=== PATIENT | male | born 1960 | race Caucasian/White ===

== ENCOUNTER 2018-07-04 03:35 | Inpatient (IN) | payer SELFPAY ==
[~2018-07-04] VITALS: Ht 162.6 cm; Wt 79.0 kg
[2018-07-04] MEDS ORDERED: SODIUM CHLORIDE 0.9% 1,000 ML IV ONE (04:15)
[2018-07-04] MEDS ORDERED: LORAZEPAM 2MG/ML CPJ IV STA (04:15)
[2018-07-04 05:03] LABS: CLARITY URINE CLOUDY (CLEAR); COLOR URINE DARK YELLOW (YELLOW); KETONES URINE TRACE (NEGATIVE); LEUKOCYTE ESTERASE URINE 2+ (NEGATIVE); NITRITE URINE NEGATIVE (NEGATIVE); OCCULT BLOOD URINE 2+ (NEGATIVE); PROTEIN URINE TRACE (NEGATIVE); SPECIFIC GRAVITY URINE 1.025 (1.005-1.030)
[2018-07-04 05:15] LABS: *AMPHETAMINES SCREEN URINE PRESUMTIVE POSITIVE (NEGATIVE); *BARBITURATES SCREEN URINE NEGATIVE (NEGATIVE); *BENZODIAZEPINES SCREEN URINE NEGATIVE (NEGATIVE); *COCAINE SCREEN URINE NEGATIVE (NEGATIVE)
[2018-07-04 05:16] LABS: CANNABINOID URINE SCREEN NEGATIVE (NEGATIVE); METHADONE URINE SCREEN NEGATIVE (NEGATIVE); OPIATES URINE SCREEN NEGATIVE (NEGATIVE); PHENCYCLIDINE URINE SCREEN NEGATIVE (NEGATIVE)
[2018-07-04 05:26] LABS: CHLORIDE 103 mEq/L (98-107); INR 1.4; PROTHROMBIN TIME 14.2 sec (9.1-11.1)
[2018-07-04 05:27] LABS: BASOPHILS % 0.2 % (0.0-2.0); EOSINOPHILS % 0.3 % (0.0-5.0); HEMATOCRIT. 21.8 % (42.0-52.0); LYMPHOCYTES % 10.4 % (20.0-50.0); MEAN CORPUSCULAR HEMOGLOBIN 24.6 pg (28.0-32.0); MEAN CORPUSCULAR VOLUME 76.9 fL (80.0-94.0); MEAN PLATELET VOLUME 7.6 fl (7.4-10.4); MONOCYTES % 8.8 % (2.0-8.0); NEUTROPHILS % 80.3 % (40.0-76.0); PLATELET 71 x1000/uL (130-400); RED BLOOD CELL COUNT 2.84 mill/uL (4.7-6.1); RED CELL DISTRIBUTION WIDTH 18.4 % (11.6-14.6)
[2018-07-04] MEDS ORDERED: LEVOFLOXACIN 750MG PREMIX 150 ML IV ONE (05:30)
[2018-07-04 05:32] LABS: ETHANOL BLOOD < 10 mg/dL
[2018-07-04 05:35] LABS: CREATINE KINASE 326 IU/L (39-308)
[2018-07-04] MEDS: LACTULOSE 20G/30ML UDC PO ONE ×2 (07:38→12:00)
[2018-07-04] MEDS: POTASSIUM CHLORIDE 20MEQ TABLET SR PO ONE ×2 (07:38→12:00)
[2018-07-04] MEDS ORDERED: POTASSIUM CHLORIDE 20MEQ TABLET SR PO ONE (11:45)
[2018-07-04] MEDS ORDERED: LACTULOSE 20G/30ML UDC PO ONE (11:45)
[2018-07-04] MEDS ORDERED: LORAZEPAM 2MG/ML CPJ IV PRN (12:45)
[2018-07-04] MEDS ORDERED: ONDANSETRON HCL 4MG/2ML INJ IV PRN (12:45)
[2018-07-04] MEDS ORDERED: DIPHENHYDRAMINE 50MG/ML VIAL IV PRN (12:45)
[2018-07-04] MEDS ORDERED: MAGNESIUM/ALUMINUM HYDROXIDE/SIMETHICONE 30ML UDC PO PRN (12:45)
[2018-07-04] MEDS ORDERED: ACETAMINOPHEN 325MG TABLET PO PRN (12:45)
[2018-07-04] MEDS ORDERED: CLONIDINE 0.1MG TABLET PO PRN (12:45)
[2018-07-04 13:09] LABS: PHOSPHORUS 2.5 mg/dL (2.5-4.9)
[2018-07-04 14:35] LABS: HEMATOCRIT 23.6 % (42.0-52.0); HEMOGLOBIN 7.4 g/dL (14.0-18.0); MEAN CORPUSCULAR HEMOGLOBIN 24.6 pg (28.0-32.0); MEAN CORPUSCULAR VOLUME 78.2 fL (80.0-94.0); PLATELET 66 x1000/uL (130-400); RED BLOOD CELL COUNT 3.02 mill/uL (4.7-6.1); RED CELL DISTRIBUTION WIDTH 18.5 % (11.6-14.6)
[2018-07-04] MEDS ORDERED: MVI, ADULT NO.1 10 ML, FOLIC ACID 1 MG, THIAMINE HCL 100 MG in SODIUM CHLORIDE 0.9% 1,0... IV ONE ×4 (16:00)
[2018-07-04] MEDS ORDERED: PANTOPRAZOLE SODIUM 40 MG/VIAL IV SCH (16:00)
[2018-07-04] MEDS ORDERED: DEXTROSE 50% WATER 50ML SYRINGE IV PRN (18:00)
[2018-07-04 18:36] LABS: FOLIC ACID (FOLATE) SERUM 14.8 ng/mL (>5.38)
[2018-07-04] MEDS ORDERED: LACTULOSE 20G/30ML UDC PO SCH (20:00)
[2018-07-04 21:00] VITALS: BP 147/74
[2018-07-04] MEDS: INSULIN LISPRO 100 UNITS/ML SUBCUT SCH (21:00)
[2018-07-04] MEDS: BLOOD SUGAR DIAGNOSTIC STRIP TEST SCH (21:00)
[2018-07-04] MEDS ORDERED: IPRATROPIUM/ALBUTEROL 0.5-3(2.5)MG/3ML NEB HHN SCH (21:15)
[2018-07-04] MEDS ORDERED: POTASSIUM CHLORIDE 20MEQ/PACKET PO NR (21:17)
[2018-07-04 21:34] VITALS: BP 147/74
[2018-07-04 21:40] VITALS: BP 147/74
[2018-07-04] MEDS: SODIUM CHLORIDE 0.9% 1,000 ML IV SCH (23:17)
[2018-07-05] VITALS: BP 143/72
[2018-07-05 04:00] VITALS: BP 115/53
[2018-07-05 06:49] LABS: BASOPHILS % 0.5 % (0.0-2.0); EOSINOPHILS % 2.5 % (0.0-5.0); HEMATOCRIT. 22.2 % (42.0-52.0); HEMOGLOBIN. 7.1 g/dL (14.0-18.0); LYMPHOCYTES % 27.7 % (20.0-50.0); MEAN CORPUSCULAR HEMOGLOBIN 24.7 pg (28.0-32.0); MEAN CORPUSCULAR VOLUME 77.7 fL (80.0-94.0); MEAN PLATELET VOLUME 7.7 fl (7.4-10.4); NEUTROPHILS % 55.3 % (40.0-76.0); PLATELET 73 x1000/uL (130-400); RED BLOOD CELL COUNT 2.86 mill/uL (4.7-6.1)
[2018-07-05] MEDS: INSULIN LISPRO 100 UNITS/ML SUBCUT SCH ×4 (06:51→21:00)
[2018-07-05] MEDS: BLOOD SUGAR DIAGNOSTIC STRIP TEST SCH ×4 (06:51→20:45)
[2018-07-05] MEDS: LACTULOSE 20G/30ML UDC PO SCH ×3 (06:52→21:17)
[2018-07-05 08:00] VITALS: BP 134/66
[2018-07-05 09:08] LABS: CHLORIDE 110 mEq/L (98-107)
[2018-07-05] MEDS: PANTOPRAZOLE SODIUM 40 MG/VIAL IV SCH (09:08)
[2018-07-05] MEDS: SODIUM CHLORIDE 0.9% 1,000 ML IV SCH (09:09)
[2018-07-05 09:15] LABS: PHOSPHORUS 3.1 mg/dL (2.5-4.9)
[2018-07-05 12:00] VITALS: BP 116/57
[2018-07-05 16:00] VITALS: BP 127/61
[2018-07-05 20:00] VITALS: BP 128/63
[2018-07-06] VITALS: BP 105/49
[2018-07-06 04:00] VITALS: BP 112/58
[2018-07-06] MEDS: LACTULOSE 20G/30ML UDC PO SCH ×2 (06:22→14:00)
[2018-07-06] MEDS: BLOOD SUGAR DIAGNOSTIC STRIP TEST SCH ×3 (06:22→18:08)
[2018-07-06] MEDS: INSULIN LISPRO 100 UNITS/ML SUBCUT SCH ×3 (06:34→17:15)
[2018-07-06 07:01] LABS: HEMATOCRIT 22.5 % (42.0-52.0); HEMOGLOBIN 7.1 g/dL (14.0-18.0); MEAN CORPUSCULAR HEMOGLOBIN 24.8 pg (28.0-32.0); MEAN CORPUSCULAR VOLUME 78.5 fL (80.0-94.0); PLATELET 78 x1000/uL (130-400); RED BLOOD CELL COUNT 2.86 mill/uL (4.7-6.1); RED CELL DISTRIBUTION WIDTH 19.4 % (11.6-14.6)
[2018-07-06 08:00] VITALS: BP 120/62
[2018-07-06] MEDS: PANTOPRAZOLE SODIUM 40 MG/VIAL IV SCH (10:10)
[2018-07-06 12:00] VITALS: BP 106/59
[2018-07-06 16:00] VITALS: BP 130/73
[2018-07-06] MEDS: IRON SUCROSE COMPLEX 100 MG/5 ML ML IV NR ×2 (16:46→16:53)
[2018-07-06 19:03] VITALS: BP 130/73
== END 2018-07-06 19:30 | disposition home or self-care (01) | DRG 241 ==
LOC: ER 04:00 → 5WST 05:49 → ENRESERV 19:59
PROVIDERS: ADMIT Internal Medicine; ATTEND Internal Medicine
DX: K29.71 Gastritis, unspecified, with bleeding (principal); G92 Toxic encephalopathy; F10.231 Alcohol dependence with withdrawal delirium; D69.6 Thrombocytopenia, unspecified; D64.9 Anemia, unspecified; E11.9 Type 2 diabetes mellitus without complications; E61.1 Iron deficiency; G89.29 Other chronic pain; K76.9 Liver disease, unspecified; Y90.9 Presence of alcohol in blood, level not specified; F15.10 Other stimulant abuse, uncomplicated; Z83.3 Family history of diabetes mellitus
CPT/HCPCS: 36415; 71045; 76700; 80305; 80307; 80320; 80329; 82140; 82270; 82550; 82607; 82746; 82962; 83036; 83540; 83550; 83605; 83735; 84100; 84443; 84484; 85027; 93005; 93970; 96361; 96365; 96375; 99285; C9113; J1956; J2060; J3411; J3490; J7030; J7620; G0480